=== PATIENT | male | born 1955 | race Caucasian/White ===

== ENCOUNTER 2016-03-01 20:53 | Inpatient (IN) | payer OTHER ==
[~2016-03-01] VITALS: Ht 185.4 cm; Wt 108.0 kg
[~2016-03-01 20:53] MED LIST: ADVAIR HFA120 INHALA IH; ALBUTEROL SULF8.5 GM IH; ASPIR-LOW81 MG PO; ATIVAN2 MG PO; AUGMENTIN875 MG PO; Advair HFA 115/21 IH; Ativan PO; CHILDREN'S100 MG/59 PO; CITRATE OF MAG296 ML PO; CLONIDINE HCL0.1 MG PO; CLOTRIMAZOLE15 GM TP; CYANOCOBALAM1000 MCG PO; DELTASONE10 MG PO; DELTASONE20 MG PO; DICLOFENAC SODI75 MG PO; Dilantin PO; FLEET ENEMA-AD118 ML PR; FOLIC ACID1 MG PO; Folvite PO; GEODON20 MG PO; Geodon PO; HABITROL,NICODE21 MG TD; HEPARIN SO5000 UNITS SC; Habitrol,Nicoderm CQ TD; Heparin Sodium SC; IBUPROFEN400 MG PO; KEFLEX500 MG PO; LAXATIVE SUPPOS10 MG PR; LEVAQUIN750 MG PO; LEVETIRACETAM500 MG PO; LEVOFLOXACIN500 MG PO; LEVOFLOXACIN750 MG PO; LIBRIUM25 MG PO; LOPRESSOR25 MG PO; Levaquin PO; Librium PO; Lopressor PO; MAALOX ADVANCE355 ML PO; MARTINIC1 EACH PO; MILK OF MAGNESIA PO; MOBIC7.5 MG PO; Maalox, Mylanta PO; Motrin PO; NALTREXONE HCL50 MG PO; NICOTINE PATCH1 EAC2 TD; NOHOMEMEDS; Nizoral 2% Cream TP; OMEPRAZOLE20 MG PO; OS-CAL 500+D C1 EAC1 PO; Oscal 500 w/Vitamin PO; PHENobarbital PO; PROTONIX20 MG PO; PROTONIX40 MG PO; Protonix PO; Proventil,Ventolin H IH; THERAGRAN1 TABLET PO; THIAMINE HCL100 MG PO; THIAMINE,VITAM100 MG PO; TRAZODONE HCL50 MG PO; Theragran PO; Thiamine,Vitamin B1 PO; ULTRACET1 TABLET PO; ULTRAM50 MG PO; UNABLE TO OBTAIN; VALIUM10 MG PO; VITAMIN B-1100 MG PO; ZITHROMAX500 MG PO; no home; no home meds; predniSONE PO
[2016-03-01 22:33] LABS: EOSINOPHIL (%) 4.3 % (0-5); EOSINOPHIL COUNT 0.2 K/uL (0-0.3); HEMATOCRIT 36.6 % (38.0-50.0); IMMATURE GRANULOCYTE (%) 0.5 % (0.0-0.7); IMMATURE GRANULOCYTE COUNT 0.2 K/uL; LYMPHOCYTE COUNT 2.1 K/uL (1.0-2.8); MCHC 33.6 G/DL (30.0-36.0); MCV 98.1 FL (86-99); MONOCYTE (%) 6.8 % (3-12); MONOCYTE COUNT 0.3 K/uL (0-0.8); NEUTROPHIL (%) 39.5 % (45-76); NEUTROPHIL COUNT 1.7 K/uL (1.8-6.4); RBC DIS.WIDTH-CV 13.2 % (11.8-14.6); RBC DIS.WIDTH-SD 45.4 % (39-53); RED BLOOD COUNT 3.73 M/uL (4.00-5.50); WHITE BLOOD COUNT 4.4 K/uL (4.1-10.2)
[2016-03-01 22:50] LABS: CHLORIDE 112 mEq/L (99-109); SODIUM 144 mEq/L (136-147)
[2016-03-01 22:52] LABS: GLUCOSE 94 mg/dL (70-99)
[2016-03-01 22:53] LABS: ANION GAP 16 MEQ/L (2-14)
[2016-03-01 22:55] LABS: SERUM ETHYL ALCOHOL 339 mg/dL
[2016-03-01 22:56] LABS: GFR ESTIMATE (CALCULATED) > 59 mL/min/
[2016-03-01 22:57] LABS: UREA NITROGEN (BUN) 11 mg/dL (9-23)
[2016-03-01 22:59] LABS: LIPASE 64 U/L (1.0-51.0)
[2016-03-01 23:08] LABS: INFLUENZA A VIRAL ANTIGEN NEGATIVE; INFLUENZA B VIRAL ANTIGEN NEGATIVE
[2016-03-02] VITALS (8 sets, daily range): BP systolic 85–110; BP diastolic 42–65
[2016-03-02 00:31] LABS: PLAT.SUFFICIENCY ADEQUATE
[2016-03-02 00:32] LABS: MEAN PLAT.VOLUME ND uM^3 (9.0-12.4); PLATELET COUNT ND K/uL (156-360)
[2016-03-02 04:00] LABS: BASOPHIL COUNT 0.1 K/uL (0-0.1); EOSINOPHIL (%) 4.8 % (0-5); EOSINOPHIL COUNT 0.2 K/uL (0-0.3); HEMATOCRIT 34.9 % (38.0-50.0); LYMPHOCYTE COUNT 1.8 K/uL (1.0-2.8); MCH 33.1 PG (29.0-34.0); MCHC 33.5 G/DL (30.0-36.0); MCV 98.9 FL (86-99); MEAN PLAT.VOLUME 9.5 uM^3 (9.0-12.4); MONOCYTE (%) 8.5 % (3-12); MONOCYTE COUNT 0.3 K/uL (0-0.8); NEUTROPHIL (%) 30.7 % (45-76); RBC DIS.WIDTH-CV 13.1 % (11.8-14.6); RBC DIS.WIDTH-SD 45.9 % (39-53); RED BLOOD COUNT 3.53 M/uL (4.00-5.50); WHITE BLOOD COUNT 3.3 K/uL (4.1-10.2)
[2016-03-02 04:01] LABS: PLATELET COUNT 171 K/uL (156-360)
[2016-03-02 04:08] LABS: CHLORIDE 113 mEq/L (99-109); POTASSIUM 3.4 mEq/L (3.7-5.4); SODIUM 145 mEq/L (136-147)
[2016-03-02 04:09] LABS: MAGNESIUM 1.4 mg/dL (1.3-2.7)
[2016-03-02 04:11] LABS: GLUCOSE 95 mg/dL (70-99)
[2016-03-02 04:12] LABS: ANION GAP 12 MEQ/L (2-14)
[2016-03-02 04:13] LABS: TOTAL BILIRUBIN 0.3 mg/dL (0.0-1.0)
[2016-03-02 04:14] LABS: ALKALINE PHOSPHATASE 77 IU/L (3-129); GFR ESTIMATE (CALCULATED) > 59 mL/min/
[2016-03-02 04:15] LABS: UREA NITROGEN (BUN) 12 mg/dL (9-23)
[2016-03-02 04:17] LABS: CREATINE KINASE 462 IU/L (1-294)
[2016-03-02 05:10] LABS: BICARBONATE 23.1 mEq/L (22-26); CARBOXY HGB 4.8 % (0-5); METHEMOGLOBIN 1.4 % (0-1.5); PO2 74 mm Hg (80-100)
[2016-03-02 05:11] LABS: COMMENTS - BLOOD GASES C+A+; DEVICE NC; O2 FLOW 2 L/MIN; PCO2 40 mm Hg (35-45); SITE RR; pH 7.37 (7.35-7.45)
[2016-03-02 06:03] LABS: METH RESISTANT S AUREUS PCR NEGATIVE (NEGATIVE)
[2016-03-02 06:05] LABS: PROBE CHECK PASS; SPECIMEN PROCESSING CONTROL PASS
[2016-03-02 09:02] LABS: ADD MIUA? NO; BILIRUBIN NEGATIVE; BLOOD NEGATIVE; COLOR YELLOW ((YELLOW)); GLUCOSE (STRIP) NEGATIVE; KETONES NEGATIVE; LEUKOCYTES NEGATIVE; NITRITE NEGATIVE; PH, URINE 5.5 (5-8); PROTEIN (STRIP) NEGATIVE; SPECIFIC GRAVITY 1.015 (1.000-1.030); UROBILINOGEN 0.2 MG/DL (0.2-1.0)
[2016-03-02 09:04] LABS: UCUL ADDED? NO
[2016-03-03] VITALS (8 sets, daily range): BP systolic 109–158; BP diastolic 64–83
[2016-03-03 06:09] LABS: HEMATOCRIT 32.5 % (38.0-50.0); MCHC 33.2 G/DL (30.0-36.0); MCV 99.4 FL (86-99); RBC DIS.WIDTH-CV 13.4 % (11.8-14.6); RBC DIS.WIDTH-SD 48.8 % (39-53); RED BLOOD COUNT 3.27 M/uL (4.00-5.50)
[2016-03-03 06:10] LABS: WHITE BLOOD COUNT 5.3 K/uL (4.1-10.2)
[2016-03-03 06:23] LABS: ANION GAP 13 MEQ/L (2-14); CHLORIDE 103 MEQ/L (99-109); GFR ESTIMATE (CALCULATED) > 59 mL/min/; GLUCOSE 98 mg/dL (70-99); POTASSIUM 3.8 MEQ/L (3.7-5.4); SAMPLE HEMOLYSIS CHECK 0; SAMPLE ICTERIC CHECK 0; SAMPLE LIPEMIA CHECK 0; UREA NITROGEN (BUN) 9 mg/dL (9-23)
[2016-03-03 06:24] LABS: SODIUM 136 MEQ/L (136-147)
[2016-03-03 06:52] LABS: MEAN PLAT.VOLUME 10.1 uM^3 (9.0-12.4)
[2016-03-03 06:53] LABS: PLATELET COUNT 113 K/uL (156-360)
[2016-03-04 03:02] VITALS: BP 156/83
[2016-03-04 06:00] LABS: HEMATOCRIT 35.1 % (38.0-50.0); MCH 32.7 PG (29.0-34.0); MCHC 33.3 G/DL (30.0-36.0); MEAN PLAT.VOLUME 10.8 uM^3 (9.0-12.4); PLATELET COUNT 107 K/uL (156-360); RBC DIS.WIDTH-SD 46.9 % (39-53); RED BLOOD COUNT 3.58 M/uL (4.00-5.50); WHITE BLOOD COUNT 6.1 K/uL (4.1-10.2)
[2016-03-04 06:26] LABS: ANION GAP 17 MEQ/L (2-14); CHLORIDE 97 MEQ/L (99-109); GFR ESTIMATE (CALCULATED) > 59 mL/min/; GLUCOSE 90 mg/dL (70-99); POTASSIUM 3.6 MEQ/L (3.7-5.4); SAMPLE HEMOLYSIS CHECK 0; SAMPLE ICTERIC CHECK 0; SAMPLE LIPEMIA CHECK 0; SODIUM 135 MEQ/L (136-147); UREA NITROGEN (BUN) 6 mg/dL (9-23)
[2016-03-04 09:05] VITALS: BP 153/96
[2016-03-04 13:03] VITALS: BP 114/79
[2016-03-04 17:03] VITALS: BP 140/91
[2016-03-04 23:09] VITALS: BP 130/77
[2016-03-05 05:10] VITALS: BP 141/78
[2016-03-05 08:00] VITALS: BP 129/85
[2016-03-05 16:00] VITALS: BP 135/75
[2016-03-05 23:34] VITALS: BP 137/66
[2016-03-06 08:22] VITALS: BP 138/71
[2016-03-06 16:06] VITALS: BP 129/61
[2016-03-07] VITALS: BP 117/76
[2016-03-07 06:43] LABS: HEMATOCRIT 37.6 % (38.0-50.0); MCH 32.5 PG (29.0-34.0); MCV 98.7 FL (86-99); RBC DIS.WIDTH-CV 13.5 % (11.8-14.6); RBC DIS.WIDTH-SD 48.4 % (39-53); RED BLOOD COUNT 3.81 M/uL (4.00-5.50)
[2016-03-07 06:58] LABS: MEAN PLAT.VOLUME 10.7 uM^3 (9.0-12.4)
[2016-03-07 07:01] LABS: PLATELET COUNT 142 K/uL (156-360)
[2016-03-07 07:15] LABS: ANION GAP 12 MEQ/L (2-14); CHLORIDE 99 MEQ/L (99-109); GFR ESTIMATE (CALCULATED) > 59 mL/min/; GLUCOSE 95 mg/dL (70-99); MAGNESIUM 1.5 mg/dl (1.3-2.7); POTASSIUM 4.1 MEQ/L (3.7-5.4); SAMPLE HEMOLYSIS CHECK 0; SAMPLE ICTERIC CHECK 0; SAMPLE LIPEMIA CHECK 0; SODIUM 133 MEQ/L (136-147); UREA NITROGEN (BUN) 17 mg/dL (9-23)
[2016-03-07 08:37] VITALS: BP 122/65
[2016-03-07 16:09] VITALS: BP 143/86
[2016-03-07 23:00] VITALS: BP 103/58
== END 2016-03-08 06:30 | disposition left against medical advice (07) | DRG 71 ==
LOC: EME 20:53 → 4WEST 03-02 02:36 → EDOF 03-02 02:36 → 5EAST 03-02 02:36 → 4WEST 03-02 04:14 → 5EAST 03-03 17:36
PROVIDERS: Emergency Medicine; Hospitalist; Internal Medicine
DX: G93.41 Metabolic encephalopathy (principal); F10.231 Alcohol dependence with withdrawal delirium; F10.229 Alcohol dependence with intoxication, unspecified; Y90.8 Blood alcohol level of 240 mg/100 ml or more; J44.0 Chronic obstructive pulmonary disease with (acute) lower respiratory infection; J20.9 Acute bronchitis, unspecified; J96.11 Chronic respiratory failure with hypoxia; E87.2 Acidosis; E86.0 Dehydration; E87.6 Hypokalemia; D64.9 Anemia, unspecified; I95.9 Hypotension, unspecified; T68.XXXA Hypothermia, initial encounter; R74.0 Nonspecific elevation of levels of transaminase and lactic acid dehydrogenase [LDH]; I11.0 Hypertensive heart disease with heart failure; I50.9 Heart failure, unspecified; G89.29 Other chronic pain; E78.5 Hyperlipidemia, unspecified; K21.9 Gastro-esophageal reflux disease without esophagitis; K44.9 Diaphragmatic hernia without obstruction or gangrene; Z86.73 Personal history of transient ischemic attack (TIA), and cerebral infarction without residual deficits; K70.30 Alcoholic cirrhosis of liver without ascites; F17.200 Nicotine dependence, unspecified, uncomplicated; Z95.5 Presence of coronary angioplasty implant and graft; Z85.118 Personal history of other malignant neoplasm of bronchus and lung; Z59.0 Homelessness
CPT/HCPCS: 36600; 70450; 71010; 80048; 80053; 80202; 81003; 82140; 82550; 82803; 83605; 83690; 83735; 85025; 85027; 87040; 87502; 87641; 94799; 97530 GO; 97530 GP; 99281; 99283; 99285; G0480; J1644; J2060; J2405; J2543; J3370; J3411; J3480; J7030; J7050

== ENCOUNTER 2016-03-08 14:33 | Emergency (ER) | payer OTHER ==
[~2016-03-08] VITALS: Ht 185.4 cm; Wt 96.4 kg
[2016-03-08 19:20] VITALS: BP 109/68
== END 2016-03-08 19:24 | disposition home or self-care (01) ==
LOC: EME → EDBD 14:33 → EME 19:24
DX: F10.129 Alcohol abuse with intoxication, unspecified (principal); E78.5 Hyperlipidemia, unspecified; I10 Essential (primary) hypertension; J44.9 Chronic obstructive pulmonary disease, unspecified; F17.200 Nicotine dependence, unspecified, uncomplicated; Z86.73 Personal history of transient ischemic attack (TIA), and cerebral infarction without residual deficits
CPT/HCPCS: 99281; 99283

== ENCOUNTER 2016-03-09 13:08 | Emergency (ER) | payer OTHER ==
[~2016-03-09] VITALS: Ht 185.4 cm; Wt 86.3 kg
[2016-03-09 13:11] VITALS: BP 94/59
== END 2016-03-09 14:30 | disposition left against medical advice (07) ==
LOC: EME 13:08
DX: R53.1 Weakness (principal); Z53.21 Procedure and treatment not carried out due to patient leaving prior to being seen by health care provider

== ENCOUNTER 2016-03-10 23:11 | Emergency (ER) | payer OTHER ==
[~2016-03-10] VITALS: Ht 182.9 cm; Wt 95.0 kg
[2016-03-11 04:03] VITALS: BP 152/83
== END 2016-03-11 04:04 | disposition home or self-care (01) ==
LOC: EME 23:11
DX: F10.129 Alcohol abuse with intoxication, unspecified (principal)
CPT/HCPCS: 99281; 99283

== ENCOUNTER 2016-03-13 21:17 | Emergency (ER) | payer OTHER ==
[~2016-03-13] VITALS: Ht 182.9 cm; Wt 95.0 kg
[2016-03-14 06:13] VITALS: BP 135/85
== END 2016-03-14 06:14 | disposition home or self-care (01) ==
LOC: EME 21:17
PROVIDERS: Emergency Medicine
DX: S00.81XA Abrasion of other part of head, initial encounter (principal); S60.519A Abrasion of unspecified hand, initial encounter; S30.1XXA Contusion of abdominal wall, initial encounter; Y04.2XXA Assault by strike against or bumped into by another person, initial encounter; Y07.499 Other family member, perpetrator of maltreatment and neglect; F10.129 Alcohol abuse with intoxication, unspecified; F17.200 Nicotine dependence, unspecified, uncomplicated
CPT/HCPCS: 70450; 72125; 74176; 82948; 99281; 99284

== ENCOUNTER 2016-03-14 12:31 | Emergency (ER) | payer OTHER ==
[~2016-03-14] VITALS: Ht 185.4 cm; Wt 99.8 kg
[2016-03-14 14:21] LABS: BASOPHIL COUNT 0.1 K/uL (0-0.1); EOSINOPHIL (%) 1.7 % (0-5); EOSINOPHIL COUNT 0.1 K/uL (0-0.3); HEMATOCRIT 38.4 % (38.0-50.0); IMMATURE GRANULOCYTE (%) 0.2 % (0.0-0.7); IMMATURE GRANULOCYTE COUNT 0.1 K/uL; MCH 32.8 PG (29.0-34.0); MCHC 34.1 G/DL (30.0-36.0); MCV 96.2 FL (86-99); MONOCYTE (%) 7.7 % (3-12); MONOCYTE COUNT 0.4 K/uL (0-0.8); NEUTROPHIL COUNT 2.6 K/uL (1.8-6.4); RBC DIS.WIDTH-CV 13.2 % (11.8-14.6); RBC DIS.WIDTH-SD 44.2 % (39-53); RED BLOOD COUNT 3.99 M/uL (4.00-5.50); WHITE BLOOD COUNT 5.2 K/uL (4.1-10.2)
[2016-03-14 14:22] LABS: MEAN PLAT.VOLUME 8.8 uM^3 (9.0-12.4); PLATELET COUNT 276 K/uL (156-360)
[2016-03-14 14:29] LABS: CHLORIDE 109 mEq/L (99-109); SODIUM 143 mEq/L (136-147)
[2016-03-14 14:33] LABS: ANION GAP 14 MEQ/L (2-14); GLUCOSE 88 mg/dL (70-99); TOTAL BILIRUBIN 0.6 mg/dL (0.0-1.0)
[2016-03-14 14:35] LABS: ALKALINE PHOSPHATASE 82 IU/L (3-129); GFR ESTIMATE (CALCULATED) > 59 mL/min/
[2016-03-14 14:36] LABS: UREA NITROGEN (BUN) 7 mg/dL (9-23)
[2016-03-14 14:39] LABS: LIPASE 40 U/L (1.0-51.0)
[2016-03-14 14:42] LABS: SERUM ETHYL ALCOHOL 237 mg/dL
[2016-03-14 15:30] LABS: TROP-I INTERPRETATION NEGATIVE; TROPONIN-I 0.01 ng/mL (0.0-0.30)
[2016-03-14 18:35] VITALS: BP 146/69
[2016-03-14 18:49] LABS: TROP-I INTERPRETATION NEGATIVE; TROPONIN-I < 0.01 ng/mL (0.0-0.30)
== END 2016-03-14 19:03 | disposition left against medical advice (07) ==
LOC: EME → EDBD 12:31 → EME 19:03
PROVIDERS: Emergency Medicine
DX: R07.9 Chest pain, unspecified (principal); F10.10 Alcohol abuse, uncomplicated; J44.9 Chronic obstructive pulmonary disease, unspecified; E78.5 Hyperlipidemia, unspecified; I10 Essential (primary) hypertension; K21.9 Gastro-esophageal reflux disease without esophagitis; Z86.73 Personal history of transient ischemic attack (TIA), and cerebral infarction without residual deficits; K74.60 Unspecified cirrhosis of liver; Z85.118 Personal history of other malignant neoplasm of bronchus and lung; F17.200 Nicotine dependence, unspecified, uncomplicated
CPT/HCPCS: 71020; 80053; 83690; 84484; 85025; 93005; 99281; 99285; G0480

== ENCOUNTER 2016-03-15 00:57 | Emergency (ER) | payer OTHER ==
[~2016-03-15] VITALS: Ht 182.9 cm; Wt 90.0 kg
[2016-03-15 04:50] VITALS: BP 148/95
== END 2016-03-15 04:51 | disposition home or self-care (01) ==
LOC: EME 00:57
DX: M19.90 Unspecified osteoarthritis, unspecified site (principal); M79.1 Myalgia; F17.200 Nicotine dependence, unspecified, uncomplicated
CPT/HCPCS: 99281; 99283

== ENCOUNTER 2016-03-17 20:35 | Emergency (ER) | payer OTHER ==
[~2016-03-17] VITALS: Ht 185.4 cm; Wt 99.6 kg
[2016-03-17 22:03] LABS: HEMATOCRIT 37.8 % (38.0-50.0); MCH 32.5 PG (29.0-34.0); MCHC 33.3 G/DL (30.0-36.0); MCV 97.4 FL (86-99); MEAN PLAT.VOLUME 9.3 uM^3 (9.0-12.4); PLATELET COUNT 262 K/uL (156-360); RBC DIS.WIDTH-CV 13.5 % (11.8-14.6); RBC DIS.WIDTH-SD 46.9 % (39-53); RED BLOOD COUNT 3.88 M/uL (4.00-5.50); WHITE BLOOD COUNT 4.8 K/uL (4.1-10.2)
[2016-03-17 22:12] LABS: CHLORIDE 110 mEq/L (99-109); POTASSIUM 3.5 mEq/L (3.7-5.4); SODIUM 146 mEq/L (136-147)
[2016-03-17 22:14] LABS: GLUCOSE 107 mg/dL (70-99)
[2016-03-17 22:15] LABS: ANION GAP 16 MEQ/L (2-14)
[2016-03-17 22:18] LABS: GFR ESTIMATE (CALCULATED) > 59 mL/min/
[2016-03-17 22:19] LABS: UREA NITROGEN (BUN) 9 mg/dL (9-23)
[2016-03-17 22:21] LABS: ALKALINE PHOSPHATASE 107 IU/L (3-129); TOTAL BILIRUBIN 0.3 mg/dL (0.0-1.0)
[2016-03-17 23:12] LABS: LIPASE 80 U/L (1.0-51.0)
[2016-03-18] MEDS ORDERED: CODEINE SULFATE15 MG PO (04:36)
[2016-03-18 05:16] VITALS: BP 107/64
== END 2016-03-18 05:17 | disposition home or self-care (01) ==
LOC: EME 20:35
DX: F10.229 Alcohol dependence with intoxication, unspecified (principal); K85.90 Acute pancreatitis without necrosis or infection, unspecified; S42.122A Displaced fracture of acromial process, left shoulder, initial encounter for closed fracture; X58.XXXA Exposure to other specified factors, initial encounter; M25.551 Pain in right hip; M25.552 Pain in left hip; F17.200 Nicotine dependence, unspecified, uncomplicated
CPT/HCPCS: 73030; 73521; 80053; 81003; 83690; 85027; 99281; 99283

== ENCOUNTER 2016-03-18 16:33 | Emergency (ER) | payer OTHER ==
[~2016-03-18] VITALS: Ht 175.3 cm; Wt 77.3 kg
[~2016-03-18 16:33] MED LIST changes: +CODEINE SULFATE15 MG PO
[2016-03-19 03:59] VITALS: BP 139/92
== END 2016-03-19 04:09 | disposition home or self-care (01) ==
LOC: EME → EDBD 16:33 → EME 16:33
DX: F10.129 Alcohol abuse with intoxication, unspecified (principal); Z59.0 Homelessness
CPT/HCPCS: 99281; 99283

== ENCOUNTER 2016-03-20 00:22 | Emergency (ER) | payer OTHER ==
[~2016-03-20] VITALS: Ht 182.9 cm; Wt 90.0 kg
[2016-03-20 00:26] VITALS: BP 149/89
== END 2016-03-20 04:30 | disposition home or self-care (01) ==
LOC: EME 00:22
DX: F10.229 Alcohol dependence with intoxication, unspecified (principal)
CPT/HCPCS: 99281; 99282

== ENCOUNTER 2016-03-20 21:12 | Emergency (ER) | payer OTHER ==
[~2016-03-20] VITALS: Ht 185.4 cm; Wt 100.4 kg
[2016-03-20 21:20] VITALS: BP 145/80
[2016-03-20 21:48] LABS: HEMATOCRIT 38.1 % (38.0-50.0); MCH 32.8 PG (29.0-34.0); MCHC 33.9 G/DL (30.0-36.0); MCV 96.9 FL (86-99); MEAN PLAT.VOLUME 9.2 uM^3 (9.0-12.4); PLATELET COUNT 188 K/uL (156-360); RBC DIS.WIDTH-CV 13.2 % (11.8-14.6); RBC DIS.WIDTH-SD 45.4 % (39-53); RED BLOOD COUNT 3.93 M/uL (4.00-5.50); WHITE BLOOD COUNT 4.5 K/uL (4.1-10.2)
[2016-03-20 22:09] LABS: CHLORIDE 107 mEq/L (99-109); POTASSIUM 3.5 mEq/L (3.7-5.4); SODIUM 145 mEq/L (136-147)
[2016-03-20 22:11] LABS: GLUCOSE 99 mg/dL (70-99)
[2016-03-20 22:13] LABS: ANION GAP 18 MEQ/L (2-14)
[2016-03-20 22:14] LABS: TOTAL BILIRUBIN 0.4 mg/dL (0.0-1.0)
[2016-03-20 22:15] LABS: ALKALINE PHOSPHATASE 108 IU/L (3-129); GFR ESTIMATE (CALCULATED) > 59 mL/min/
[2016-03-20 22:16] LABS: UREA NITROGEN (BUN) 11 mg/dL (9-23)
[2016-03-20 23:21] LABS: LIPASE 86 U/L (1.0-51.0)
== END 2016-03-21 01:14 | disposition left against medical advice (07) ==
LOC: EME 21:12
DX: F10.229 Alcohol dependence with intoxication, unspecified (principal); R10.9 Unspecified abdominal pain; J44.9 Chronic obstructive pulmonary disease, unspecified; E78.5 Hyperlipidemia, unspecified; I10 Essential (primary) hypertension; K74.60 Unspecified cirrhosis of liver; Z85.118 Personal history of other malignant neoplasm of bronchus and lung; Z86.73 Personal history of transient ischemic attack (TIA), and cerebral infarction without residual deficits; F17.200 Nicotine dependence, unspecified, uncomplicated
CPT/HCPCS: 80053; 81003; 83690; 85027

== ENCOUNTER 2016-03-22 18:13 | Emergency (ER) | payer OTHER ==
[~2016-03-22] VITALS: Ht 182.9 cm; Wt 102.3 kg
[2016-03-22 18:11] VITALS: BP 110/63
== END 2016-03-22 21:00 | disposition left against medical advice (07) ==
LOC: EME → EDBD 18:13 → EME 21:00
DX: M54.9 Dorsalgia, unspecified (principal); Z53.21 Procedure and treatment not carried out due to patient leaving prior to being seen by health care provider

== ENCOUNTER 2016-03-27 22:34 | Emergency (ER) | payer OTHER ==
[~2016-03-27] VITALS: Ht 180.3 cm; Wt 90.0 kg
[2016-03-28 06:20] VITALS: BP 132/82
== END 2016-03-28 06:21 | disposition home or self-care (01) ==
LOC: EME 22:34
DX: F10.229 Alcohol dependence with intoxication, unspecified (principal); J44.9 Chronic obstructive pulmonary disease, unspecified; E78.5 Hyperlipidemia, unspecified; I10 Essential (primary) hypertension; K21.9 Gastro-esophageal reflux disease without esophagitis; Z86.73 Personal history of transient ischemic attack (TIA), and cerebral infarction without residual deficits; K74.60 Unspecified cirrhosis of liver; Z85.118 Personal history of other malignant neoplasm of bronchus and lung; F17.200 Nicotine dependence, unspecified, uncomplicated
CPT/HCPCS: 99281; 99283

== ENCOUNTER 2016-11-25 19:58 | Emergency (ER) | payer SELFPAY ==
[~2016-11-25] VITALS: Ht 182.9 cm; Wt 100.5 kg
[2016-11-25 20:15] VITALS: BP 101/67
== END 2016-11-25 20:54 | disposition home or self-care (01) ==
LOC: EME 19:58 → EDBD 19:58 → EME 20:54
DX: F10.229 Alcohol dependence with intoxication, unspecified (principal); F17.200 Nicotine dependence, unspecified, uncomplicated; I10 Essential (primary) hypertension; E78.5 Hyperlipidemia, unspecified; K21.9 Gastro-esophageal reflux disease without esophagitis; D64.9 Anemia, unspecified; Z86.73 Personal history of transient ischemic attack (TIA), and cerebral infarction without residual deficits
CPT/HCPCS: 99281; 99283

== ENCOUNTER 2016-11-28 22:15 | Emergency (ER) | payer SELFPAY ==
[~2016-11-28] VITALS: Ht 182.9 cm; Wt 100.5 kg
[2016-11-29 04:49] VITALS: BP 112/78
== END 2016-11-29 04:51 | disposition home or self-care (01) ==
LOC: EDBD 22:15 → EME 22:15
DX: F10.129 Alcohol abuse with intoxication, unspecified (principal)
CPT/HCPCS: 99281; 99283

== ENCOUNTER 2016-11-29 22:35 | Emergency (ER) | payer SELFPAY ==
[~2016-11-29] VITALS: Ht 185.4 cm; Wt 88.6 kg
[2016-11-30 04:52] VITALS: BP 111/68
== END 2016-11-30 04:53 | disposition home or self-care (01) ==
LOC: EDBD 22:35 → EME 22:35
DX: F10.129 Alcohol abuse with intoxication, unspecified (principal); S09.90XA Unspecified injury of head, initial encounter; W18.30XA Fall on same level, unspecified, initial encounter; I11.0 Hypertensive heart disease with heart failure; I50.9 Heart failure, unspecified; E78.5 Hyperlipidemia, unspecified; F17.200 Nicotine dependence, unspecified, uncomplicated; Z95.5 Presence of coronary angioplasty implant and graft; Z85.118 Personal history of other malignant neoplasm of bronchus and lung; Z86.73 Personal history of transient ischemic attack (TIA), and cerebral infarction without residual deficits
CPT/HCPCS: 70450; 99281; 99284

== ENCOUNTER 2016-11-30 16:53 | Emergency (ER) | payer SELFPAY ==
[~2016-11-30] VITALS: Ht 185.4 cm; Wt 87.0 kg
[2016-11-30 18:43] VITALS: BP 113/80
== END 2016-11-30 18:44 | disposition home or self-care (01) ==
LOC: EDBD 16:53 → EME 16:53
DX: F10.129 Alcohol abuse with intoxication, unspecified (principal); Z85.118 Personal history of other malignant neoplasm of bronchus and lung; Z95.5 Presence of coronary angioplasty implant and graft; F17.200 Nicotine dependence, unspecified, uncomplicated
CPT/HCPCS: 99281; 99282

== ENCOUNTER 2016-12-04 00:10 | Emergency (ER) | payer SELFPAY ==
[~2016-12-04] VITALS: Ht 185.4 cm; Wt 87.0 kg
[2016-12-04 01:19] VITALS: BP 132/72
== END 2016-12-04 01:26 | disposition home or self-care (01) ==
LOC: EME 00:10
DX: Z00.00 Encounter for general adult medical examination without abnormal findings (principal); F10.10 Alcohol abuse, uncomplicated
CPT/HCPCS: 99281; 99283

== ENCOUNTER 2016-12-31 21:29 | Emergency (ER) | payer SELFPAY ==
[~2016-12-31] VITALS: Ht 185.4 cm; Wt 102.0 kg
[2017-01-01 04:40] VITALS: BP 115/74
== END 2017-01-01 06:13 | disposition home or self-care (01) ==
LOC: EME 21:29
DX: F10.129 Alcohol abuse with intoxication, unspecified (principal); J44.9 Chronic obstructive pulmonary disease, unspecified; I11.0 Hypertensive heart disease with heart failure; I50.9 Heart failure, unspecified; E78.5 Hyperlipidemia, unspecified; K21.9 Gastro-esophageal reflux disease without esophagitis; K74.60 Unspecified cirrhosis of liver; F32.9 Major depressive disorder, single episode, unspecified; F17.200 Nicotine dependence, unspecified, uncomplicated; Z86.73 Personal history of transient ischemic attack (TIA), and cerebral infarction without residual deficits; Z85.118 Personal history of other malignant neoplasm of bronchus and lung; Z95.5 Presence of coronary angioplasty implant and graft
CPT/HCPCS: 99281; 99285

== ENCOUNTER 2017-01-11 09:02 | Inpatient (IN) | payer OTHER ==
[~2017-01-11] VITALS: Ht 185.4 cm; Wt 97.1 kg
[2017-01-11 10:39] LABS: BASE EXCESS -2.2 mEq/L (-3 to +3); BICARBONATE 23.2 mEq/L (22-26); CARBOXY HGB 7.2 % (0-5); METHEMOGLOBIN 0.4 % (0-1.5); PCO2 41 mm Hg (35-45); pH 7.36 (7.35-7.45)
[2017-01-11 10:40] LABS: COMMENTS - BLOOD GASES C+; DEVICE NC; O2 FLOW 4 L/MIN; PO2 108 mm Hg (80-100); SITE LR; TOTAL RESP RATE 18 resp/min
[2017-01-11 10:59] LABS: INTER. NORMALIZED RATIO 1.2; PROTHROMBIN TIME 13.6 SEC (10.2-12.9)
[2017-01-11 11:01] LABS: PTT 35.6 SEC (25-37)
[2017-01-11 11:09] LABS: EOSINOPHIL (%) 0.4 % (0-5); HEMATOCRIT 35.5 % (38.0-50.0); IMMATURE GRANULOCYTE (%) 0.8 % (0.0-0.7); INSTRUMENT ABS NEUTROPHIL CT 4.1 K/uL; LYMPHOCYTE COUNT 0.6 K/uL (1.0-2.8); MCH 31.8 PG (29.0-34.0); MCHC 34.9 G/DL (30.0-36.0); MONOCYTE (%) 11.1 % (3-12); MONOCYTE COUNT 0.6 K/uL (0-0.8); NEUTROPHIL (%) 76.4 % (45-76); NEUTROPHIL COUNT 4.1 K/uL (1.8-6.4); RBC DIS.WIDTH-CV 17.4 % (11.8-14.6); RBC DIS.WIDTH-SD 56.6 % (39-53); WHITE BLOOD COUNT 5.3 K/uL (4.1-10.2)
[2017-01-11 11:28] LABS: TROP-I INTERPRETATION NEGATIVE; TROPONIN-I < 0.01 ng/mL (0.0-0.30)
[2017-01-11 11:29] LABS: CK-MB 63.8 ng/mL (0.0-4.9)
[2017-01-11 11:36] LABS: CHLORIDE 91 mEq/L (99-109); POTASSIUM 2.9 mEq/L (3.7-5.4); SODIUM 130 mEq/L (136-147)
[2017-01-11 11:38] LABS: GLUCOSE 110 mg/dL (70-99)
[2017-01-11 11:39] LABS: ANION GAP 15 MEQ/L (2-14)
[2017-01-11 11:41] LABS: SERUM ETHYL ALCOHOL 144 mg/dL
[2017-01-11 11:42] LABS: ABS NEUTROPHIL COUNT 4.5; ANISOCYTOSIS 1+; ATYPICAL LYMPHOCYTE 0.9 %; BAND NEUTROPHILS 20.2 % (0-8.0); EOSINOPHIL ABS CT 0; LYMPHOCYTES 7.9 % (15.0-45.0); MACROCYTES 1+; MEAN PLAT.VOLUME 9.8 uM^3 (9.0-12.4); NUCLEATED RBC'S 1.8; PLAT.SUFFICIENCY DECREASED; POIKILOCYTOSIS 1+; SEG.NEUTROPHILS 64.9 % (46.0-76.0)
[2017-01-11 11:42] LABS: ALKALINE PHOSPHATASE 93 IU/L (3-129); GFR ESTIMATE (CALCULATED) > 59 mL/min/
[2017-01-11 11:43] LABS: UREA NITROGEN (BUN) 12 mg/dL (9-23)
[2017-01-11 11:45] LABS: LIPASE 51 U/L (1.0-51.0); TOTAL CK 1221 IU/L (1-294)
[2017-01-11 11:54] LABS: ADD MIUA? NO; BILIRUBIN NEGATIVE; BLOOD NEGATIVE; COLOR YELLOW ((YELLOW)); GLUCOSE (STRIP) NEGATIVE; KETONES 20; LEUKOCYTES NEGATIVE; NITRITE NEGATIVE; PROTEIN (STRIP) NEGATIVE; SPECIFIC GRAVITY 1.009 (1.000-1.030); UCUL ADDED? NO; UROBILINOGEN 0.2 MG/DL (0.2-1.0)
[2017-01-11 11:55] LABS: PLATELET COUNT 104 K/uL (156-360)
[2017-01-11 12:04] LABS: AMPHETAMINE NEGATIVE (500 ng/mL); BARBITURATES NEGATIVE (200 ng/mL); BENZODIAZEPINES PRESUMPTIVE POSITIVE (150 ng/mL); COCAINE NEGATIVE (150 ng/mL); INTERNAL CONTROLS VALID? YES; METHADONE NEGATIVE (200 ng/mL); METHAMPHETAMINE NEGATIVE (500 ng/mL); OPIATES (MORPHINE) NEGATIVE (100 ng/mL); OXYCODONE NEGATIVE (100 ng/mL); PHENCYCLIDINE NEGATIVE (25 ng/mL); PROPOXYPHENE NEGATIVE (300 ng/mL); THC CANNABINOIDS NEGATIVE (50 ng/mL); TRICYCLIC ANTIDEPRESSANTS NEGATIVE (300 ng/mL)
[2017-01-11 12:05] LABS: ADD MEDTOX COMMENT Y
[2017-01-11 12:19] LABS: CREATINE KINASE 1221 IU/L (1-294)
[2017-01-11 12:54] LABS: BENZODIAZEPINES, URINE SCREEN POSITIVE (200 ng/mL)
[2017-01-11 20:00] VITALS: BP 130/79
[2017-01-11 20:26] VITALS: BP 142/88
[2017-01-11 21:00] VITALS: BP 129/76
[2017-01-11 21:10] LABS: METH RESISTANT S AUREUS PCR NEGATIVE (NEGATIVE)
[2017-01-11 21:21] LABS: PROBE CHECK PASS; SPECIMEN PROCESSING CONTROL PASS
[2017-01-11 22:00] VITALS: BP 95/57
[2017-01-11 23:00] VITALS: BP 98/70
[2017-01-12] VITALS (24 sets, daily range): BP systolic 0–98; BP diastolic 0–63
[2017-01-12 05:59] LABS: HEMATOCRIT 26.5 % (38.0-50.0); MCH 32.5 PG (29.0-34.0); MCHC 35.8 G/DL (30.0-36.0); MCV 90.8 FL (86-99); MEAN PLAT.VOLUME 9.7 uM^3 (9.0-12.4); PLATELET COUNT 106 K/uL (156-360); RBC DIS.WIDTH-CV 17.6 % (11.8-14.6); RED BLOOD COUNT 2.92 M/uL (4.00-5.50); WHITE BLOOD COUNT 4.8 K/uL (4.1-10.2)
[2017-01-12 06:16] LABS: ANION GAP 11 MEQ/L (2-14); CHLORIDE 97 MEQ/L (99-109); GFR ESTIMATE (CALCULATED) > 59 mL/min/; GLUCOSE 87 mg/dL (70-99); POTASSIUM 2.9 MEQ/L (3.7-5.4); SAMPLE HEMOLYSIS CHECK 0; SAMPLE ICTERIC CHECK 0; SAMPLE LIPEMIA CHECK 0; SODIUM 132 MEQ/L (136-147); UREA NITROGEN (BUN) 11 mg/dL (9-23)
[2017-01-13] VITALS (24 sets, daily range): BP systolic 83–160; BP diastolic 52–117
[2017-01-14] VITALS (23 sets, daily range): BP systolic 0–176; BP diastolic 0–121
[2017-01-14 05:24] LABS: EOSINOPHIL (%) 0.8 % (0-5); HEMATOCRIT 28.7 % (38.0-50.0); IMMATURE GRANULOCYTE COUNT 0.1 K/uL; INSTRUMENT ABS NEUTROPHIL CT 3.7 K/uL; LYMPHOCYTE COUNT 0.8 K/uL (1.0-2.8); MCH 32.3 PG (29.0-34.0); MCHC 33.4 G/DL (30.0-36.0); MEAN PLAT.VOLUME 9.9 uM^3 (9.0-12.4); MONOCYTE (%) 10.9 % (3-12); MONOCYTE COUNT 0.6 K/uL (0-0.8); NEUTROPHIL (%) 71.6 % (45-76); NEUTROPHIL COUNT 3.7 K/uL (1.8-6.4); PLATELET COUNT 115 K/uL (156-360); RBC DIS.WIDTH-CV 18.6 % (11.8-14.6); RBC DIS.WIDTH-SD 65.2 % (39-53); RED BLOOD COUNT 2.97 M/uL (4.00-5.50); WHITE BLOOD COUNT 5.2 K/uL (4.1-10.2)
[2017-01-14 05:32] LABS: MCV 96.6 FL (86-99)
[2017-01-14 05:54] LABS: ANION GAP 10 MEQ/L (2-14); CHLORIDE 105 MEQ/L (99-109); GFR ESTIMATE (CALCULATED) > 59 mL/min/; GLUCOSE 92 mg/dL (70-99); SAMPLE HEMOLYSIS CHECK 0; SAMPLE ICTERIC CHECK 0; SAMPLE LIPEMIA CHECK 0; UREA NITROGEN (BUN) 7 mg/dL (9-23)
[2017-01-14 05:55] LABS: POTASSIUM 3.6 MEQ/L (3.7-5.4); SODIUM 141 MEQ/L (136-147)
[2017-01-14 16:52] LABS: BASE EXCESS 3.9 mEq/L (-3 to +3); BICARBONATE 27.6 mEq/L (22-26); CARBOXY HGB 0.9 % (0-5); COMMENTS - BLOOD GASES C+; DEVICE HFNC; METHEMOGLOBIN 1.3 % (0-1.5); O2 FLOW 15 L/MIN; PCO2 37 mm Hg (35-45); PO2 63 mm Hg (80-100); SITE RR; pH 7.48 (7.35-7.45)
[2017-01-14 16:53] LABS: TOTAL RESP RATE 26 resp/min
[2017-01-15] VITALS (16 sets, daily range): BP systolic 104–141; BP diastolic 62–97
[2017-01-15 07:05] LABS: EOSINOPHIL (%) 1.8 % (0-5); EOSINOPHIL COUNT 0.1 K/uL (0-0.3); HEMATOCRIT 30.3 % (38.0-50.0); IMMATURE GRANULOCYTE (%) 1.3 % (0.0-0.7); IMMATURE GRANULOCYTE COUNT 0.1 K/uL; LYMPHOCYTE COUNT 0.8 K/uL (1.0-2.8); MCH 33.1 PG (29.0-34.0); MCHC 33.3 G/DL (30.0-36.0); MCV 99.3 FL (86-99); MEAN PLAT.VOLUME 9.7 uM^3 (9.0-12.4); MONOCYTE (%) 11.1 % (3-12); MONOCYTE COUNT 0.5 K/uL (0-0.8); NEUTROPHIL (%) 66.8 % (45-76); PLATELET COUNT 125 K/uL (156-360); RBC DIS.WIDTH-CV 18.9 % (11.8-14.6); RBC DIS.WIDTH-SD 68.1 % (39-53); RED BLOOD COUNT 3.05 M/uL (4.00-5.50); WHITE BLOOD COUNT 4.5 K/uL (4.1-10.2)
[2017-01-15 07:27] LABS: ANION GAP 11 MEQ/L (2-14); CHLORIDE 104 MEQ/L (99-109); GFR ESTIMATE (CALCULATED) > 59 mL/min/; GLUCOSE 77 mg/dL (70-99); POTASSIUM 4.1 MEQ/L (3.7-5.4); SAMPLE HEMOLYSIS CHECK 0; SAMPLE ICTERIC CHECK 0; SAMPLE LIPEMIA CHECK 0; SODIUM 138 MEQ/L (136-147); UREA NITROGEN (BUN) 7 mg/dL (9-23)
[2017-01-16] VITALS (7 sets, daily range): BP systolic 106–142; BP diastolic 58–86
[2017-01-16 05:43] LABS: EOSINOPHIL (%) 1.7 % (0-5); EOSINOPHIL COUNT 0.1 K/uL (0-0.3); HEMATOCRIT 30.9 % (38.0-50.0); IMMATURE GRANULOCYTE (%) 1.3 % (0.0-0.7); IMMATURE GRANULOCYTE COUNT 0.1 K/uL; INSTRUMENT ABS NEUTROPHIL CT 3.5 K/uL; MCH 32.2 PG (29.0-34.0); MCHC 32.7 G/DL (30.0-36.0); MCV 98.4 FL (86-99); MEAN PLAT.VOLUME 9.8 uM^3 (9.0-12.4); MONOCYTE (%) 13.8 % (3-12); MONOCYTE COUNT 0.8 K/uL (0-0.8); NEUTROPHIL (%) 65.1 % (45-76); NEUTROPHIL COUNT 3.5 K/uL (1.8-6.4); PLATELET COUNT 152 K/uL (156-360); RBC DIS.WIDTH-CV 18.2 % (11.8-14.6); RBC DIS.WIDTH-SD 64.9 % (39-53); RED BLOOD COUNT 3.14 M/uL (4.00-5.50); WHITE BLOOD COUNT 5.4 K/uL (4.1-10.2)
[2017-01-16 06:06] LABS: ANION GAP 7 MEQ/L (2-14); CHLORIDE 104 MEQ/L (99-109); GFR ESTIMATE (CALCULATED) > 59 mL/min/; GLUCOSE 91 mg/dL (70-99); MAGNESIUM 1.8 mg/dl (1.3-2.7); POTASSIUM 4.3 MEQ/L (3.7-5.4); SAMPLE HEMOLYSIS CHECK 0; SAMPLE ICTERIC CHECK 0; SAMPLE LIPEMIA CHECK 0; SODIUM 137 MEQ/L (136-147); UREA NITROGEN (BUN) 7 mg/dL (9-23)
[2017-01-17 03:24] VITALS: BP 113/63
[2017-01-17 04:52] LABS: HEMATOCRIT 30.1 % (38.0-50.0); MCH 32.4 PG (29.0-34.0); MCHC 33.2 G/DL (30.0-36.0); MCV 97.4 FL (86-99); RBC DIS.WIDTH-CV 17.6 % (11.8-14.6); RBC DIS.WIDTH-SD 62.8 % (39-53); RED BLOOD COUNT 3.09 M/uL (4.00-5.50); WHITE BLOOD COUNT 5.2 K/uL (4.1-10.2)
[2017-01-17 05:02] LABS: PLATELET COUNT 208 K/uL (156-360)
[2017-01-17 05:20] LABS: SODIUM 138 mEq/L (136-147)
[2017-01-17 05:24] LABS: ANION GAP 8 MEQ/L (2-14)
[2017-01-17 05:26] LABS: GFR ESTIMATE (CALCULATED) > 59 mL/min/
[2017-01-17 05:27] LABS: CHLORIDE 105 mEq/L (99-109); GLUCOSE 149 mg/dL (70-99); UREA NITROGEN (BUN) 10 mg/dL (9-23)
[2017-01-17 08:00] VITALS: BP 124/70
[2017-01-17 11:39] VITALS: BP 107/57
[2017-01-17 15:20] VITALS: BP 111/61
[2017-01-17 20:15] VITALS: BP 129/67
[2017-01-18] VITALS (8 sets, daily range): BP systolic 95–141; BP diastolic 58–81
[2017-01-19 04:24] VITALS: BP 102/58
[2017-01-19 06:19] LABS: HEMATOCRIT 34.5 % (38.0-50.0); MCH 31.9 PG (29.0-34.0); MCHC 32.5 G/DL (30.0-36.0); MCV 98.3 FL (86-99); MEAN PLAT.VOLUME 9.6 uM^3 (9.0-12.4); RBC DIS.WIDTH-SD 61.1 % (39-53); RED BLOOD COUNT 3.51 M/uL (4.00-5.50); WHITE BLOOD COUNT 5.7 K/uL (4.1-10.2)
[2017-01-19 06:26] LABS: PLATELET COUNT 309 K/uL (156-360)
[2017-01-19 06:49] LABS: ANION GAP 11 MEQ/L (2-14); CHLORIDE 103 MEQ/L (99-109); GFR ESTIMATE (CALCULATED) > 59 mL/min/; GLUCOSE 87 mg/dL (70-99); POTASSIUM 4.6 MEQ/L (3.7-5.4); SAMPLE HEMOLYSIS CHECK 0; SAMPLE ICTERIC CHECK 0; SAMPLE LIPEMIA CHECK 0; SODIUM 138 MEQ/L (136-147); UREA NITROGEN (BUN) 10 mg/dL (9-23)
[2017-01-19 07:39] VITALS: BP 117/69
[2017-01-19] MEDS ORDERED: FOLIC ACID1 MG PO (09:20)
[2017-01-19] MEDS ORDERED: NICOTINE PATCH1 EAC2 TD (09:20)
[2017-01-19] MEDS ORDERED: THERAGRAN1 TABLET PO (09:20)
[2017-01-19] MEDS ORDERED: Thiamine,Vitamin B1 PO (09:20)
[2017-01-19 12:04] VITALS: BP 113/65
== END 2017-01-19 15:32 | DRG 871 ==
LOC: EME 09:02 → 4WEST 16:36 → EDOF 16:36 → ENRESERV 16:52 → CANRESERV 16:52 → ENRESERV 17:06 → 4WEST 19:43 → ENRESERV 01-16 17:15 → 4EAST 01-16 20:25 → ENRESERV 01-18 10:06 → 5SOUTH 01-18 17:26 → ENPENDDIS 01-19 → 5SOUTH 01-19 15:32
PROVIDERS: Emergency Medicine; Hospitalist; Internal Medicine Critical Care Medicine; Surgery
PROC: 02HV33Z Insertion of Infusion Device into Superior Vena Cava, Percutaneous Approach (ICD-10-PCS; principal; 2017-01-11)
DX: A41.9 Sepsis, unspecified organism (principal); R65.21 Severe sepsis with septic shock; T68.XXXA Hypothermia, initial encounter; T79.6XXA Traumatic ischemia of muscle, initial encounter; X31.XXXA Exposure to excessive natural cold, initial encounter; W18.30XA Fall on same level, unspecified, initial encounter; L03.115 Cellulitis of right lower limb; L03.116 Cellulitis of left lower limb; F10.231 Alcohol dependence with withdrawal delirium; E43 Unspecified severe protein-calorie malnutrition; E87.2 Acidosis; D69.6 Thrombocytopenia, unspecified; E87.1 Hypo-osmolality and hyponatremia; E83.42 Hypomagnesemia; K70.30 Alcoholic cirrhosis of liver without ascites; E87.6 Hypokalemia; H55.00 Unspecified nystagmus; R26.2 Difficulty in walking, not elsewhere classified; F32.9 Major depressive disorder, single episode, unspecified; E51.2 Wernicke's encephalopathy; I11.0 Hypertensive heart disease with heart failure; I50.9 Heart failure, unspecified; J44.9 Chronic obstructive pulmonary disease, unspecified; E78.5 Hyperlipidemia, unspecified; K21.9 Gastro-esophageal reflux disease without esophagitis; Y92.481 Parking lot as the place of occurrence of the external cause; F17.200 Nicotine dependence, unspecified, uncomplicated; E66.9 Obesity, unspecified; Z68.28 Body mass index [BMI] 28.0-28.9, adult; Z59.0 Homelessness; Z86.73 Personal history of transient ischemic attack (TIA), and cerebral infarction without residual deficits; Z95.5 Presence of coronary angioplasty implant and graft; Z85.118 Personal history of other malignant neoplasm of bronchus and lung
CPT/HCPCS: 36600; 70450; 71010; 72125; 80048; 80053; 81003; 82330; 82550; 82553; 82607; 82746; 82803; 83605; 83690; 83735; 84100; 84443; 84484; 84999; 85025; 85027; 85610; 85730; 87040; 87077; 87186; 87641; 87801; 90686; 92526 GN; 92610 GN; 93005; 93971; 94010; 94640; 94640 76; 94760; 94799; 97530 GO; 97530 GP; 99281; 99285; C1751; C1753; G0480; J0610; J0690; J0696; J1630; J1650; J1940; J2060; J2405; J2543; J2704; J3411; J3475; J3480; J7030; J7040; J7050

== ENCOUNTER 2017-10-09 16:05 | Emergency (ER) | payer OTHER ==
[~2017-10-09] VITALS: Ht 185.4 cm; Wt 105.7 kg
[2017-10-09 17:16] VITALS: BP 126/84
== END 2017-10-09 17:16 | disposition home or self-care (01) ==
LOC: EME 16:05
DX: G89.29 Other chronic pain (principal); M25.562 Pain in left knee; M25.561 Pain in right knee; M79.672 Pain in left foot; M79.671 Pain in right foot; M19.90 Unspecified osteoarthritis, unspecified site; E11.9 Type 2 diabetes mellitus without complications; E78.5 Hyperlipidemia, unspecified; F32.9 Major depressive disorder, single episode, unspecified; I11.0 Hypertensive heart disease with heart failure; I50.9 Heart failure, unspecified; M06.9 Rheumatoid arthritis, unspecified; J43.9 Emphysema, unspecified; J45.909 Unspecified asthma, uncomplicated; K21.9 Gastro-esophageal reflux disease without esophagitis; K74.60 Unspecified cirrhosis of liver; Z85.118 Personal history of other malignant neoplasm of bronchus and lung; Z86.73 Personal history of transient ischemic attack (TIA), and cerebral infarction without residual deficits; Z95.5 Presence of coronary angioplasty implant and graft; F17.200 Nicotine dependence, unspecified, uncomplicated; Z86.69 Personal history of other diseases of the nervous system and sense organs
CPT/HCPCS: 99281; 99283

== ENCOUNTER 2017-10-25 16:53 | Emergency (ER) | payer OTHER ==
[~2017-10-25] VITALS: Ht 185.4 cm; Wt 101.8 kg
[2017-10-25 19:08] VITALS: BP 101/49
== END 2017-10-25 19:09 | disposition home or self-care (01) ==
LOC: EME 16:53
DX: S63.501A Unspecified sprain of right wrist, initial encounter (principal); F10.129 Alcohol abuse with intoxication, unspecified; M54.9 Dorsalgia, unspecified; W18.30XA Fall on same level, unspecified, initial encounter
CPT/HCPCS: 72170; 73110; 99281; 99283